=== PATIENT | male | born 1965 | race Caucasian/White ===

== ENCOUNTER 2019-09-16 13:23 | Emergency (ER) | payer SELFPAY ==
[~2019-09-16] VITALS: Ht 168 cm; Wt 77.0 kg
[2019-09-16] MEDS ORDERED: LACTATED RINGERS 1,000 ML IV ONE (13:43)
--- NOTE | 2019-09-16 13:52 | ED General ---
General Chief Complaint: Exposure Stated Complaint: DISORIENTED Nursing Triage Note: PT STATES HE HAD BEEN WORKING OUTSIDE SINCE ABOUT 0600 AND BECAME DISORIENTED. PT DID NOTDRIVE HERE. DENIES LOC OR FALLING DOWN, DENIES HEADACHE. Nursing Sepsis Screen: No Definite Risk Source of Information: Patient Exam Limitations: No Limitations History of Present Illness Date Seen by Provider: Sep 16, 2019 Time Seen by Provider: 13:34 Initial Comments Here with report of feeling disoriented while working today. 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 Started feeling a little weak and took a break but then started feeling disoriented. Denies nausea, vomiting or body aches. Denies upper respiratory symptoms. Denies exposure to COVID-19. Denies sick contacts. Feels a little better now that he has cooled off. Does have history of skin cancer and has a large lesion on the middle of his back he is currently in evaluation for this and is due to get radiation therapy. Timing/Duration: 1 Hour Severity: Moderate, Severe Associated Systoms: No Chest Pain, No Cough, No Fever/Chills, No Headaches, No Nausea/Vomiting, No Shortness of Air; Weakness Allergies and Home Medications Allergies Coded Allergies: No Known Drug Allergies (Unverified , 09/16/19) Home Medications No Active Prescriptions or Reported Meds Patient Home Medication List Home Medication List Reviewed: Yes Review of Systems Review of Systems Constitutional: see HPI; No chills, No fever; weakness EENTM: no symptoms reported Respiratory: No cough, No short of breath Cardiovascular: No chest pain, No edema Gastrointestinal: No abdominal pain, No nausea, No vomiting Genitourinary: no symptoms reported Musculoskeletal: No muscle pain; muscle weakness Skin: see HPI, change in color, hx of skin cancer, lesions All Other Systems Reviewed Negative Unless Noted: Yes Past Hidcjkh-Hudpea-Yvlqum Hx Past Med/Social Hx: Reviewed Nursing Past Med/Soc Hx Patient Social History Alcohol Use: Occasionally Uses Alcohol Beverage of Choice: Vodka Recreational Drug Use: Yes (occasional THC) Smoking Status: Current Everyday Smoker Recent Foreign Travel: No Contact w/Someone Who Travel: No Recent Infectious Disease Expo: No Physical Abuse: No Sexual Abuse: No Mistreated: No Fear: No Past Medical History Surgeries: Yes (skin excision for cancer) Respiratory: No Cardiac: No Neurological: No Genitourinary: No Gastrointestinal: No Musculoskeletal: No Cancer: Yes Skin Did You Recieve Any Treatments: Yes What Type of Treatment Did You: Surgical Intervention Psychosocial: No Family Medical History Reviewed Nursing Family Hx Physical Exam Vital Signs Vital Signs - First Documented 09/16/19 13:32 Temp 36.3 Pulse 78 Resp 18 B/P (MAP) 129/88 (102) O2 Delivery Room Air Capillary Refill : Less Than 3 Seconds Height, Weight, BMI Height: '" Weight: lbs. oz. kg; 27.00 BMI Method: General Appearance: No Apparent Distress, WD/WN HEENT: PERRL/EOMI, Pharynx Normal Neck: Non Tender, Supple Respiratory: Lungs Clear, Normal Breath Sounds Cardiovascular: Regular Rate, Rhythm, No Murmur Gastrointestinal: Non Tender, Soft Extremity: Normal Range of Motion, Non Tender Neurologic/Psychiatric: Alert, Oriented x3, No Motor/Sensory Deficits Skin: Normal Color, Other (clothes soaked in sweat. Exposed skin dry. 10 cm circular lesion mid back that is consistent with skin cancer lesion.) Progress/Results/Core Measures Suspected Sepsis Recent Fever Within 48 Hours: No Infection Criteria Present: None New/Unexplained Altered Menta: Yes Sepsis Screen: No Definite Risk SIRS Temperature: Pulse: 78 Respiratory Rate: 18 Laboratory Tests 09/16/19 13:50: White Blood Count 20.8H Blood Pressure 129 /88 Mean: 102 Laboratory Tests 09/16/19 13:50: Creatinine 1.20, Platelet Count 355, Total Bilirubin 0.7 Results/Orders Lab Results Laboratory Tests Test 09/16/19 13:50 Range/Units White Blood Count 20.8 H 4.3-11.0 10^3/uL Red Blood Count 4.75 4.35-5.85 10^6/uL Hemoglobin 14.6 13.3-17.7 G/DL Hematocrit 42 40-54 % Mean Corpuscular Volume 89 80-99 FL Mean Corpuscular Hemoglobin 31 25-34 PG Mean Corpuscular Hemoglobin Concent 35 32-36 G/DL Red Cell Distribution Width 14.0 10.0-14.5 % Platelet Count 355 130-400 10^3/uL Mean Platelet Volume 10.3 7.4-10.4 FL Neutrophils (%) (Auto) 78 H 42-75 % Lymphocytes (%) (Auto) 12 12-44 % Monocytes (%) (Auto) 9 0-12 % Eosinophils (%) (Auto) 0 0-10 % Basophils (%) (Auto) 0 0-10 % Neutrophils # (Auto) 16.2 H 1.8-7.8 X 10^3 Lymphocytes # (Auto) 2.6 1.0-4.0 X 10^3 Monocytes # (Auto) 1.8 H 0.0-1.0 X 10^3 Eosinophils # (Auto) 0.1 0.0-0.3 10^3/uL Basophils # (Auto) 0.1 0.0-0.1 10^3/uL Neutrophils % (Manual) 73 % Lymphocytes % (Manual) 16 % Monocytes % (Manual) 10 % Eosinophils % (Manual) 1 % Blood Morphology Comment NORMAL Sodium Level 140 135-145 MMOL/L Potassium Level 3.8 3.6-5.0 MMOL/L Chloride Level 106 98-107 MMOL/L Carbon Dioxide Level 21 21-32 MMOL/L Anion Gap 13 5-14 MMOL/L Blood Urea Nitrogen 15 7-18 MG/DL Creatinine 1.20 0.60-1.30 MG/DL Estimat Glomerular Filtration Rate > 60 BUN/Creatinine Ratio 13 Glucose Level 150 H 70-105 MG/DL Calcium Level 9.3 8.5-10.1 MG/DL Corrected Calcium 8.5-10.1 MG/DL Magnesium Level 2.0 1.6-2.4 MG/DL Total Bilirubin 0.7 0.1-1.0 MG/DL Aspartate Amino Transf (AST/SGOT) 10 5-34 U/L Alanine Aminotransferase (ALT/SGPT) 12 0-55 U/L Alkaline Phosphatase 54 40-136 U/L Total Creatine Kinase 98 30-200 U/L Total Protein 7.5 6.4-8.2 GM/DL Albumin 4.6 H 3.2-4.5 GM/DL My Orders Orders - MARK WEST MD Cbc With Automated Diff (09/16/19 13:43) Comprehensive Metabolic Panel (09/16/19 13:43) Creatine Kinase (09/16/19 13:43) Magnesium (09/16/19 13:43) Ed Iv/Invasive Line Start (09/16/19 13:43) Lactated Ringers (Lr 1000 Ml Iv Solution (09/16/19 13:43) Manual Differential (09/16/19 13:50) Chest Pa/Lat (2 View) (09/16/19 ) Medications Given in ED Current Medications Medications Dose Ordered Sig/Thien Route Start Time Stop Time Status Last Admin Dose Admin Lactated Ringer's 1,000 ml @ 0 mls/hr Q0M ONCE IV 09/16/19 13:43 09/16/19 13:47 DC 09/16/19 13:57 1,000 MLS/HR Vital Signs/I&O 09/16/19 13:32 Temp 36.3 Pulse 78 Resp 18 B/P (MAP) 129/88 (102) O2 Delivery Room Air Capillary Refill : Less Than 3 Seconds Blood Pressure Mean: 102 Progress Note : Progress Note Seen and evaluated. IV, labs, LR 1 L bolus ordered. Monitor patient. 1457: Overall improved. Labs reviewed. White count is elevated but I suspect this is both dehydration and reactive in nature. Chest x-ray negative. He feels comfortable going home. Discharged home with return precautions. Patient verbalize understanding instructions and agreement with plan. Diagnostic Imaging Diagonstic Imaging: Xray Plain Films/CT/US/NM/MRI: chest Comments [facility] [place], [place] NAME: PHILOMENA SAWYER [facility] REC#: [id number] PT STATUS: REG ER : 1965 PHYSICIAN: MARK WEST MD ADMIT DATE: 09/16/19/ER Draft Date of Exam:09/16/19 CHEST PA/LAT (2 VIEW) INDICATION: Disorientation. TIME OF EXAM: 02:28 p.m. COMPARISON: No prior studies are available for comparison. The heart size is normal. The pulmonary vascularity is unremarkable. The lungs are clear. No infiltrate, effusion or pneumothorax is detected. IMPRESSION: No acute cardiopulmonary process is detected. Dictated on workstation # [id number] Dict: 09/16/19 1423 Trans: 09/16/19 1425 [id number] Interpreted by: DEQUAN COKER MD Electronically signed by: Departure Impression Primary Impression: Heat exhaustion Qualified Codes: T67.5XXA - Heat exhaustion, unspecified, initial encounter Disposition: HOME, SELF-CARE Condition: Improved Departure-Patient Inst. Decision time for Depature: 14:59 Patient Instructions: Dehydration, Adult (DC), Heat Exhaustion and Heat Stroke (DC) Add. Discharge Instructions: All discharge instructions reviewed with patient and/or family. Voiced understanding. Appears that you got overheated today and are somewhat dehydrated. Drink plenty of fluids and eat a normal diet. Rest today. You may resume normal activity tomorrow. Monitor yourself for becoming overheated and take breaks as needed. Make sure you eating a normal diet and drinking plenty of fluids including some fluids that have electrolytes and at such as Gatorade or similar. Return for worse pain, fever, vomiting, weakness, breathing problems or other concerns as needed. Scripts No Active Prescriptions or Reported Meds MARK WEST MD Sep 16, 2019 13:52
[2019-09-16 14:02] LABS: BASOPHILS # (AUTO) 0.1 10^3/uL (0.0-0.1); BASOPHILS % (AUTO) 0 % (0-10); EOSINOPHILS # (AUTO) 0.1 10^3/uL (0.0-0.3); EOSINOPHILS % (AUTO) 0 % (0-10); HEMATOCRIT 42 % (40-54); HEMOGLOBIN 14.6 G/DL (13.3-17.7); LYMPHOCYTES # (AUTO) 2.6 X 10^3 (1.0-4.0); LYMPHOCYTES % (AUTO) 12 % (12-44); MEAN CORPUSCULAR HEMOGLOBIN 31 PG (25-34); MEAN CORPUSCULAR HGB CONC 35 G/DL (32-36); MEAN CORPUSCULAR VOLUME 89 FL (80-99); MEAN PLATELET VOLUME 10.3 FL (7.4-10.4); MONOCYTES # (AUTO) 1.8 X 10^3 (0.0-1.0); MONOCYTES % (AUTO) 9 % (0-12); NEUTROPHILS # (AUTO) 16.2 X 10^3 (1.8-7.8); NEUTROPHILS % (AUTO) 78 % (42-75); PLATELET COUNT 355 10^3/uL (130-400); WHITE BLOOD COUNT 20.8 10^3/uL (4.3-11.0)
[2019-09-16 14:18] LABS: ALBUMIN 4.6 GM/DL (3.2-4.5); CHLORIDE 106 MMOL/L (98-107); POTASSIUM 3.8 MMOL/L (3.6-5.0); SODIUM 140 MMOL/L (135-145)
[2019-09-16 14:20] LABS: CALCIUM 9.3 MG/DL (8.5-10.1)
[2019-09-16 14:21] LABS: GLUCOSE 150 MG/DL (70-105); TOTAL PROTEIN 7.5 GM/DL (6.4-8.2)
[2019-09-16 14:22] LABS: BILIRUBIN,TOTAL 0.7 MG/DL (0.1-1.0); CARBON DIOXIDE 21 MMOL/L (21-32)
[2019-09-16 14:24] LABS: ALKALINE PHOSPHATASE 54 U/L (40-136); GFR ESTIMATED > 60
[2019-09-16 14:25] LABS: BUN/CREATININE RATIO 13
--- NOTE | 2019-09-16 14:25 | Diagnostic Imaging Report ---
INDICATION: Disorientation. TIME OF EXAM: 02:28 p.m. COMPARISON: No prior studies are available for comparison. The heart size is normal. The pulmonary vascularity is unremarkable. The lungs are clear. No infiltrate, effusion or pneumothorax is detected. IMPRESSION: No acute cardiopulmonary process is detected. Dictated by: Dictated on workstation # [id number]
[2019-09-16 14:27] LABS: ALANINE AMINOTRANSFERASE 12 U/L (0-55)
[2019-09-16 14:28] LABS: CREATINE KINASE 98 U/L (30-200)
[2019-09-16 14:47] LABS: NEUTROPHILS % (MANUAL) 73 %
[2019-09-16 14:48] LABS: EOSINOPHILS % (MANUAL) 1 %; LYMPHOCYTES % (MANUAL) 16 %; MONOCYTES % (MANUAL) 10 %; RBC MORPH NORMAL
[2019-09-16 15:08] VITALS: BP 117/91
== END 2019-09-16 15:08 | disposition home or self-care (01) ==
LOC: ER 13:26
DX: T67.5XXA Heat exhaustion, unspecified, initial encounter (principal); F17.210 Nicotine dependence, cigarettes, uncomplicated; L98.9 Disorder of the skin and subcutaneous tissue, unspecified; Z85.828 Personal history of other malignant neoplasm of skin
CPT/HCPCS: 36415; 71046; 80053; 82550; 83735; 85007; 85027